=== PATIENT | female | born 1975 | race Two or more races ===

== ENCOUNTER 2018-09-21 10:27 | Emergency (ER) | payer MEDICAID ==
[~2018-09-21] VITALS: Ht 170.2 cm; Wt 104.3 kg
[2018-09-21] MEDS ORDERED: NKM (10:33)
--- NOTE | 2018-09-21 10:39 | NUR ---
ED Nurse Note: pt walked in to ED with family member due to pain on both foot for 1 week. denies any recent injury. no swelling or local fever noted. AAO x4. respirations even and non-labored noted. will wait for the further order.
--- NOTE | 2018-09-21 11:25 | NUR ---
ED Nurse Note: RN notified Dr. David that pt has only one kidney. pain meds will be change to tylenol.
[2018-09-21 12:01] LABS: BASOPHILS % (AUTO) 0.6 % (0.0-2.0); EOSINOPHILS % (AUTO) 2.2 % (0.0-3.0); HEMOGLOBIN 12.6 G/DL (12.0-16.0); LYMPHOCYTES % (AUTO) 23.5 % (20.0-45.0); MEAN CORPUSCULAR VOLUME 84 FL (80-99); MONOCYTES % (AUTO) 11.1 % (1.0-10.0); NEUTROPHILS % (AUTO) 62.6 % (45.0-75.0); PLATELET COUNT 258 K/UL (150-450); RED BLOOD COUNT 4.54 M/UL (4.20-5.40); RED CELL DISTRIBUTION WIDTH 13.2 % (11.6-14.8); WHITE BLOOD COUNT 9.2 K/UL (4.8-10.8)
[2018-09-21 12:09] LABS: ANION GAP 9 mmol/L (5-15); BLOOD UREA NITROGEN 14 mg/dL (7-18); CARBON DIOXIDE 28 MMOL/L (21-32); CHLORIDE 106 MMOL/L (98-107); CREATININE 0.7 MG/DL (0.55-1.30); POTASSIUM 3.9 MMOL/L (3.5-5.1); SODIUM 143 MMOL/L (136-145)
[2018-09-21 12:46] VITALS: BP 144/88
--- NOTE | 2018-09-21 12:47 | NUR ---
ER DISCHARGE NOTE: Patient is cleared to be discharged per ERMD, pt is aox4, on room air, with stable vital signs. pt was given dc and prescription instructions, pt was able to verbalize understanding, pt id band removed. pt is able to ambulate with steady gait. pt took all belongings.
--- NOTE | 2018-09-21 14:05 | Emergency Room Report ---
History of Present Illness General Chief Complaint: Lower Extremity Injury Source: Patient Present Illness HPI Patient presents with complaints of initially pain to both feet however on further questioning complains more of her left foot pain essentially discomfort to base of the foot Also some at the mid dorsal aspect Denies any fall or trauma symptoms ongoing for the past 3 to 4 weeks however worsening over the past 1 to 2 days denies any redness Denies any calf pain or knee pain denies any fall or trauma pain is worse with ambulation Allergies: Coded Allergies: No Known Allergies (Unverified , 09/21/18) Patient History Past Medical History: see triage record Pertinent Family History: none Reviewed Nursing Documentation: PMH: Agreed; PSxH: Agreed Nursing Documentation-PMH Past Medical History: No History, Except For Review of Systems All Other Systems: negative except mentioned in HPI Physical Exam Vital Signs Date Time Temp Pulse Resp B/P (MAP) Pulse Ox O2 Delivery O2 Flow Rate FiO2 09/21/18 10:30 98.4 75 20 154/98 (116) 97 Room Air Sp02 EP Interpretation: reviewed, normal General Appearance: well appearing, no apparent distress Head: normocephalic, atraumatic Eyes: bilateral eye PERRL, bilateral eye EOMI ENT: hearing grossly normal, normal pharynx, TMs + canals normal, uvula midline Neck: supple Respiratory: lungs clear, no retraction Cardiovascular #1: regular rate, rhythm Gastrointestinal: soft Musculoskeletal: other - There is some swelling noted palpable to the base of the left foot, hemodynamically stable, calf is nontender no erythema Neurologic: alert, oriented x3, responsive Psychiatric: mood/affect normal Skin: other - As above Lymphatic: no adenopathy Medical Decision Making Diagnostic Impression: Primary Impression: foot pain Additional Impression: plantar fascitis ER Course Multiple differentials and consideration after the initial history and examination 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 Therefore BUN/creatinine examination was also evaluated Blood work is at baseline levels x-ray does not show any acute disease there is possibility of plantar fasciitis Given the swelling however patient does require very close follow-up Podiatry follow-up also provided and patient requires repeat outpatient evaluation Labs Test 09/21/18 11:50 White Blood Count 9.2 K/UL (4.8-10.8) Red Blood Count 4.54 M/UL (4.20-5.40) Hemoglobin 12.6 G/DL (12.0-16.0) Hematocrit 38.0 % (37.0-47.0) Mean Corpuscular Volume 84 FL (80-99) Mean Corpuscular Hemoglobin 27.7 PG (27.0-31.0) Mean Corpuscular Hemoglobin Concent 33.1 G/DL (32.0-36.0) Red Cell Distribution Width 13.2 % (11.6-14.8) Platelet Count 258 K/UL (150-450) Mean Platelet Volume 6.7 FL (6.5-10.1) Neutrophils (%) (Auto) 62.6 % (45.0-75.0) Lymphocytes (%) (Auto) 23.5 % (20.0-45.0) Monocytes (%) (Auto) 11.1 % (1.0-10.0) Eosinophils (%) (Auto) 2.2 % (0.0-3.0) Basophils (%) (Auto) 0.6 % (0.0-2.0) Sodium Level 143 MMOL/L (136-145) Potassium Level 3.9 MMOL/L (3.5-5.1) Chloride Level 106 MMOL/L (98-107) Carbon Dioxide Level 28 MMOL/L (21-32) Anion Gap 9 mmol/L (5-15) Blood Urea Nitrogen 14 mg/dL (7-18) Creatinine 0.7 MG/DL (0.55-1.30) Estimat Glomerular Filtration Rate > 60 mL/min (>60) Glucose Level 86 MG/DL (74-106) Calcium Level 9.0 MG/DL (8.5-10.1) Other X-Ray Diagnostic Results Other X-Ray Diagnostic Results : X-Ray ordered: left Foot # of Views/Limited Vs Complete: 3 View Indication: Pain EP Interpretation: Yes Interpretation: no dislocation, no soft tissue swelling, no fractures Impression: No acute disease Electronically Signed by: Bigg David DO Last Vital Signs Date Time Temp Pulse Resp B/P (MAP) Pulse Ox O2 Delivery O2 Flow Rate FiO2 09/21/18 12:46 98.0 70 16 144/88 99 Room Air Status: improved Disposition: HOME, SELF-CARE Condition: Stable Referrals: NON PHYSICIAN (PCP) RICO BROWN M.D. Patient Instructions: Plantar Fasciitis Additional Instructions: Patient is provided with the discharge instructions notified to follow up with primary doctor in the next 2-3 days otherwise return to the er with any worsening symptoms. Please note that this report is being documented using boarding pass technology. This can lead to erroneous entry secondary to incorrect interpretation by the dictating instrument. Bigg David DO Sep 21, 2018 14:05
== END 2018-09-21 12:48 | disposition home or self-care (01) ==
LOC: EMR 11:10
DX: M25.572 Pain in left ankle and joints of left foot (principal); M25.571 Pain in right ankle and joints of right foot; M72.2 Plantar fascial fibromatosis
CPT/HCPCS: 36415; 80048; 85025; 99283

== ENCOUNTER 2019-01-28 08:43 | Emergency (ER) | payer MEDICAID ==
[~2019-01-28] VITALS: Ht 172.7 cm; Wt 108.9 kg
[~2019-01-28 08:43] MED LIST: NKM
--- NOTE | 2019-01-28 09:00 | NUR ---
ED Nurse Note: Patient walked in ED from home, accompanied by d/t headache x1 week. Pt aox4, no distress noted. Denies changes in vision/vomiting/diarrhea, but states has mild nausea. Placed in hospital gown, cont. press and blow machine tender and pulse ox. Will continue to monitor.
--- NOTE | 2019-01-28 09:12 | Emergency Room Report ---
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 Allergies: Coded Allergies: No Known Allergies (Unverified , 09/21/18) Patient History Limited by: medical condition Past Medical History: old chart reviewed Last Menstrual Period: currently Now: No Reviewed Nursing Documentation: PMH: Agreed; PSxH: Agreed Nursing Documentation-PMH Past Medical History: No Stated History Review of Systems All Other Systems: negative except mentioned in HPI Physical Exam Vital Signs Date Time Temp Pulse Resp B/P (MAP) Pulse Ox O2 Delivery O2 Flow Rate FiO2 01/28/19 08:50 97.9 91 19 134/98 (110) 98 Room Air Sp02 EP Interpretation: reviewed, normal General Appearance: well appearing, no apparent distress Head: normocephalic, atraumatic Eyes: bilateral eye PERRL, bilateral eye EOMI ENT: hearing grossly normal, normal pharynx, TMs + canals normal, uvula midline Neck: full range of motion, supple, no meningismus, no bony tend Respiratory: lungs clear, normal breath sounds, no rhonchi, no respiratory distress, no retraction, no accessory muscle use Cardiovascular #1: normal peripheral pulses, regular rate, rhythm, no edema, no gallop, no JVD, no murmur Gastrointestinal: normal bowel sounds, non tender, soft, no mass, no organomegaly, non-distended, no guarding, no hernia, no pulsatile mass, no rebound Genitourinary: no CVA tenderness Musculoskeletal: other - Some reproducible discomfort bilateral mid trapezius area no meningismus Neurologic: oriented x3, responsive, 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, motor strength/ tone normal, sensory intact Psychiatric: mood/affect normal Skin: no rash Lymphatic: normal inspection, no adenopathy Medical Decision Making Diagnostic Impression: Primary Impression: Headache ER Course Multiple differentials including but not limited to neurological, neurosurgical , infectious such as meningitis, cardiac pathology entertained patient's initial blood pressure was mildly elevated and repeat also shows increased blood pressure extensive blood work was initiated which appears at baseline levels Imaging of the brain was obtained which is also negative Patient's blood pressure has been somewhat labile and did improve during her stay however I feel the patient does require appropriate check of her blood pressure twice a day I do not suspect any obvious infectious etiology such as meningitis patient has a soft posterior neck exam and is afebrile At this time will have initial conservative outpatient trial Labs Test 01/28/19 09:20 White Blood Count 8.2 K/UL (4.8-10.8) Red Blood Count 4.49 M/UL (4.20-5.40) Hemoglobin 12.8 G/DL (12.0-16.0) Hematocrit 37.7 % (37.0-47.0) Mean Corpuscular Volume 84 FL (80-99) Mean Corpuscular Hemoglobin 28.5 PG (27.0-31.0) Mean Corpuscular Hemoglobin Concent 34.0 G/DL (32.0-36.0) Red Cell Distribution Width 11.8 % (11.6-14.8) Platelet Count 280 K/UL (150-450) Mean Platelet Volume 6.4 FL (6.5-10.1) Neutrophils (%) (Auto) 58.8 % (45.0-75.0) Lymphocytes (%) (Auto) 23.3 % (20.0-45.0) Monocytes (%) (Auto) 12.8 % (1.0-10.0) Eosinophils (%) (Auto) 4.1 % (0.0-3.0) Basophils (%) (Auto) 1.0 % (0.0-2.0) Sodium Level 140 MMOL/L (136-145) Potassium Level 4.1 MMOL/L (3.5-5.1) Chloride Level 105 MMOL/L (98-107) Carbon Dioxide Level 31 MMOL/L (21-32) Anion Gap 4 mmol/L (5-15) Blood Urea Nitrogen 9 mg/dL (7-18) Creatinine 0.8 MG/DL (0.55-1.30) Estimat Glomerular Filtration Rate > 60 mL/min (>60) Glucose Level 92 MG/DL (74-106) Calcium Level 8.7 MG/DL (8.5-10.1) Total Bilirubin 0.4 MG/DL (0.2-1.0) Aspartate Amino Transf (AST/SGOT) 20 U/L (15-37) Alanine Aminotransferase (ALT/SGPT) 33 U/L (12-78) Alkaline Phosphatase 66 U/L (46-116) Total Protein 7.4 G/DL (6.4-8.2) Albumin 3.3 G/DL (3.4-5.0) Globulin 4.1 g/dL Albumin/Globulin Ratio 0.8 (1.0-2.7) CT/MRI/US Diagnostic Results CT/MRI/US Diagnostic Results : Impression CT headImpression: No mass effect, edema or acute bleed. Last Vital Signs Date Time Temp Pulse Resp B/P (MAP) Pulse Ox O2 Delivery O2 Flow Rate FiO2 01/28/19 08:50 97.9 91 19 134/98 (110) 98 Room Air Status: improved Disposition: HOME, SELF-CARE Condition: Improved Scripts Acetaminophen* (TYLENOL EXTRA STRENGTH*) 500 Mg Tablet 500 MG ORAL Q8H PRN for Prn Headache/Temp > 101, #20 TAB 0 Refills Prov: Bigg David DO 01/28/19 Referrals: NOT CHOSEN IPA/MD,REFERRING (PCP) Additional Instructions: Patient is provided with the discharge instructions notified to follow up with primary doctor in the next 2-3 days otherwise return to the er with any worsening symptoms. Please note that this report is being documented using DRAGON technology. This can lead to erroneous entry secondary to incorrect interpretation by the dictating instrument. Bigg David DO Jan 28, 2019 09:12
[2019-01-28] MEDS ORDERED: Metoclopramide 10mg/2ml Inj IVP ONE (09:15)
[2019-01-28] MEDS ORDERED: DiphenhydrAMINE 50mg/ml Inj IVP ONE (09:15)
--- NOTE | 2019-01-28 09:20 | NUR ---
ED Nurse Note: IV inserted on right AC, patient tolerated well. Blood collected, sent down to lab along with urine sample provided by patient.
[2019-01-28 09:38] VITALS: BP 158/94
--- NOTE | 2019-01-28 09:40 | NUR ---
ED Nurse Note: Pt was taken to CT via wheelchair; in stable condition.
[2019-01-28 09:44] LABS: ANION GAP 4 mmol/L (5-15); BLOOD UREA NITROGEN 9 mg/dL (7-18); CALCIUM 8.7 MG/DL (8.5-10.1); CARBON DIOXIDE 31 MMOL/L (21-32); CHLORIDE 105 MMOL/L (98-107); CREATININE 0.8 MG/DL (0.55-1.30); POTASSIUM 4.1 MMOL/L (3.5-5.1); SODIUM 140 MMOL/L (136-145)
[2019-01-28 09:50] LABS: ALANINE AMINOTRANSFERASE 33 U/L (12-78); ALBUMIN 3.3 G/DL (3.4-5.0); ALBUMIN/GLOBULIN RATIO 0.8 (1.0-2.7); ALKALINE PHOSPHATASE 66 U/L (46-116); ASPARTATE AMINO TRANSFERASE 20 U/L (15-37); BILIRUBIN,TOTAL 0.4 MG/DL (0.2-1.0)
--- NOTE | 2019-01-28 09:52 | NUR ---
ED Nurse Note: Pt back from CT; in stable condition. IV fluids ongoing. Will continue to monitor.
[2019-01-28 10:04] LABS: EOSINOPHILS % (AUTO) 4.1 % (0.0-3.0); HEMATOCRIT 37.7 % (37.0-47.0); HEMOGLOBIN 12.8 G/DL (12.0-16.0); LYMPHOCYTES % (AUTO) 23.3 % (20.0-45.0); MEAN CORPUSCULAR VOLUME 84 FL (80-99); MONOCYTES % (AUTO) 12.8 % (1.0-10.0); NEUTROPHILS % (AUTO) 58.8 % (45.0-75.0); PLATELET COUNT 280 K/UL (150-450); RED BLOOD COUNT 4.49 M/UL (4.20-5.40); RED CELL DISTRIBUTION WIDTH 11.8 % (11.6-14.8); WHITE BLOOD COUNT 8.2 K/UL (4.8-10.8)
--- NOTE | 2019-01-28 10:15 | Diagnostic Imaging Report ---
Indication: Headache Technique: Contiguous 5 mm thick transaxial imaging of the head obtained in a Siemens Sensation [address] scanner. Soft tissue and bone windows generated. Automatic Exposure Control was utilized. Total Dose length Product (DLP): [address] Dose Index Volume (CTDIvol): 62.7 mGy Comparison: none Findings: The size and configuration of the cortical sulci, basal cisterns, and ventricles are within normal limits for age. There is no mass effect, midline shift, or edema identified. There is no evidence of acute hemorrhage or abnormal intra-axial or extra-axial fluid collections. The bones and soft tissues are unremarkable. Impression: No mass effect, edema or acute bleed. The CT scanner at [facility] is accredited by the [employer] and the scans are performed using dose optimization techniques as appropriate to a performed exam including Automatic Exposure control.
[2019-01-28] MEDS ORDERED: TYLENOL EXTRA500 MG ORAL (10:24)
--- NOTE | 2019-01-28 10:30 | NUR ---
ER DISCHARGE NOTE: Patient is cleared to be discharged per ERMD, pt is aox4, on room air, with stable vital signs. pt was given dc and prescription instructions, pt was able to verbalize understanding, pt id band and iv site removed without complications. pt is able to ambulate with steady gait, accompanied by spouse. pt took all belongings.
[2019-01-28 10:37] VITALS: BP 150/88
== END 2019-01-28 10:30 | disposition home or self-care (01) ==
LOC: EMR 08:58
DX: R51 Headache (principal)
CPT/HCPCS: 36415; 70450; 80053; 85025; 96361; 96374; 96375; J1200; J2765; Z7502; 99284; J7030

== ENCOUNTER 2019-05-18 16:20 | Emergency (ER) | payer MEDICAID ==
[~2019-05-18] VITALS: Ht 172.7 cm; Wt 104.3 kg
[~2019-05-18 16:20] MED LIST changes: +TYLENOL EXTRA500 MG ORAL
[2019-05-18 16:30] VITALS: BP 158/121
--- NOTE | 2019-05-18 16:30 | NUR ---
ED Nurse Note: PT AMBULATED TO ED C/O HEADACHE, RIGHT EARACHE, AND VOMITING X 4 DAYS
--- NOTE | 2019-05-18 16:52 | Emergency Room Report ---
History of Present Illness General Chief Complaint: Earache Source: Patient Present Illness HPI 43-year-old female with no segment past nuchal history here complaining of bilateral ear pain, congestion, and sore throat x1 week. Reports that she has history of recurrent sinusitis. Denies any recent travel, fever and chills, drainage from the ears. Has not taken medication for symptom relief. Complains of minor dizziness. Denies nausea vomiting, abdominal pain, urinary symptoms, . Reports in the past had been seen by ENT however has not followed up recently. Denies tinnitus, hearing loss, vertigo Allergies: Coded Allergies: No Known Allergies (Unverified , 09/21/18) Patient History Past Medical History: see triage record Past Surgical History: none Pertinent Family History: none Last Menstrual Period: 05/18/2019 Now: No Immunizations: UTD Reviewed Nursing Documentation: PMH: Agreed; PSxH: Agreed Nursing Documentation-PMH Past Medical History: No History, Except For Review of Systems All Other Systems: negative except mentioned in HPI Physical Exam Vital Signs Date Time Temp Pulse Resp B/P (MAP) Pulse Ox O2 Delivery O2 Flow Rate FiO2 05/18/19 16:30 98.2 83 16 158/121 (133) 98 Room Air Sp02 EP Interpretation: reviewed, normal General Appearance: no apparent distress, alert, GCS 15, non-toxic Head: normocephalic, atraumatic Eyes: bilateral eye normal inspection, bilateral eye PERRL ENT: TMs + canals normal, nasal congestion, pharyngeal erythema, other - Frontal and maxillary sinuses tender to palpation Neck: full range of motion, supple/symm/no masses Respiratory: chest non-tender, lungs clear, normal breath sounds, no rhonchi, no wheezing, speaking full sentences Cardiovascular #1: regular rate, rhythm, no edema, no murmur Gastrointestinal: normal bowel sounds, non tender, soft, non-distended, no guarding, no rebound Genitourinary: no CVA tenderness Musculoskeletal: back normal Neurologic: alert, motor strength/tone normal, oriented x3, sensory intact, responsive, speech normal Psychiatric: judgement/insight normal, memory normal, mood/affect normal, no suicidal/homicidal ideation Skin: no rash Lymphatic: no adenopathy Medical Decision Making PA Attestation All my diagnosis and treatment plans were reviewed ad discussed with my supervising physician Dr. Peñaloza Diagnostic Impression: Primary Impression: Sinusitis ER Course 43-year-old female with no segment past nuchal history here complaining of bilateral ear pain, congestion, and sore throat x1 week. Reports that she has history of recurrent sinusitis. Denies any recent travel, fever and chills, drainage from the ears. Has not taken medication for symptom relief. Complains of minor dizziness. Denies nausea vomiting, abdominal pain, urinary symptoms, . Reports in the past had been seen by ENT however has not followed up recently. Denies tinnitus, hearing loss, vertigo Ddx considered but are not limited to: strep pharyngitis, URI, tonsillitis, peritonsillar abscess, influneza, sinusitis, otitis media, otitis externa Vital signs: are WNL, pt. is afebrile H&PE are most consistent with: Sinusitis ORDERS: Augmentin, Flonase, meclizine, guaifenesin ED INTERVENTIONS: None required at this time. DISCHARGE: At this time pt. is stable for d/c to home. Will provide printed patient care instructions, and any necessary prescriptions. Care plan and follow up instructions have been discussed with the patient prior to discharge. Earache is secondary to sinus infection, patient to follow-up primary care provider and ENT, if worsening symptoms return to the emergency room Last Vital Signs Date Time Temp Pulse Resp B/P (MAP) Pulse Ox O2 Delivery O2 Flow Rate FiO2 05/18/19 16:30 98.2 83 16 158/121 (133) 98 Room Air Disposition: HOME, SELF-CARE Condition: Stable Scripts Guaifenesin* (GUAIFENESIN*) 100 Mg/5 Ml Liquid 5 ML ORAL Q8H, #120 ML 0 Refills Prov: ErnestinamogMarci treviñoal PA 05/18/19 Fluticasone Propionate (Flonase Allergy Relief) 9.9 Ml [place].susp 2 SPRAY NS BID, #10 ML Prov: ErnestinamogvernmiMarcial PA 05/18/19 Meclizine Hcl* (MECLIZINE*) 25 Mg Tablet 25 MG ORAL THREE TIMES A DAY, #14 TAB Prov: CarolineelimoghavamiNahal PA 05/18/19 Amoxicillin/Potassium Clav 875-125* (AUGMENTIN 875-125 TABLET*) 1 Each Tablet 1 TAB ORAL TWICE A DAY for 10 Days, #20 TAB Prov: Rach Hughes 05/18/19 Patient Instructions: Sinusitis, Adult, [id number] Additional Instructions: Take medication as directed, follow-up with your primary care provider, you may need to be sent to ear nose throat doctor if this is a recurrent issue. If worsening symptoms return to the emergency room, avoid operating machinery when taking meclizine also when feeling dizzy. Rach Hughes May 18, 2019 16:52
[2019-05-18] MEDS ORDERED: GUAIFENESI100 MG/5 M ORAL (16:54)
[2019-05-18] MEDS ORDERED: FLONASE ALLERG9.9 ML NS (16:54)
[2019-05-18] MEDS ORDERED: MECLIZINE HCL25 MG ORAL (16:54)
[2019-05-18] MEDS ORDERED: AUGMENTIN 875-1 EAC1 ORAL (16:54)
[2019-05-18 17:15] VITALS: BP 158/121
--- NOTE | 2019-05-18 17:15 | NUR ---
ER DISCHARGE NOTE: Patient is cleared to be discharged per ERMD, pt is aox4, on room air, with stable vital signs. pt was given dc and prescription instructions, pt was able to verbalize understanding, pt id band . pt is able to ambulate with steady gait. pt took all belongings.
== END 2019-05-18 17:15 | disposition home or self-care (01) ==
LOC: EMR 16:32
DX: J32.9 Chronic sinusitis, unspecified (principal)
CPT/HCPCS: 99282